=== PATIENT | female | born 1940 | race Caucasian/White ===

== ENCOUNTER → 2018-12-05 14:00 | Outpatient (REF) | payer MEDICARE, SELFPAY ==
[2018-12-06 07:54] LABS: Color, Urine Yellow (Yellow); Glucose, Dipstick Normal (Normal); Ketone-Dipstick Negative (Negative); Leukocyte Esterase-Dipstick 100 /ul (Negative); Nitrite-Dipstick Negative (Negative); Occult Blood-Urine Negative /ul (Negative); Protein-Dipstick Negative (Negative); Specific Gravity, Urine 1.015 (1.002-1.030); Urine Bilirubin Dipstick Negative (Negative); Urine Clarity Sl. Cloudy (Clear); Urine Urobilinogen Normal (Normal)
[2018-12-06 08:11] LABS: Bacteria RARE /hpf (None Seen); Calcium Oxalate Crystals Ur RARE /hpf (<or=2+); Mucous, Urine 1+ /hpf (<or=2+); Red Blood Cells-Urine 0-5 SEEN /hpf (0-5); Squamous Epithelial Cells - UA 0-5 SEEN /hpf (5-10); White Blood Cells 0-5 SEEN /hpf (0-5)
== END ==
LOC: OLS.BROOKB 14:00
PROVIDERS: Visit Provider Family Medicine
DX: N39.0 Urinary tract infection, site not specified (principal)
CPT/HCPCS: 81001; 87077; 87086; 87088; 87186

== ENCOUNTER → 2018-12-11 | Outpatient (REF) | payer MEDICARE, SELFPAY ==
[2018-12-11 08:41] LABS: AST(SGOT) 23 U/L (15-37); Alanine Aminotransfer ALT/SGPT 37 U/L (13-56); Anion Gap 9 (5-15); BUN 14 mg/dL (7-18); BUN/Creat Ratio 14.7 RATIO (10-20); Calcium,Total 7.9 mg/dL (8.5-10.1); Chloride 112 mmol/L (98-107); Cholesterol 106 mg/dL (200); Creatinine, Serum 0.96 mg/dL (0.55-1.02); EST Glomerular Filtration Rate 60 mL/min (>60); Est Glom Filt Rate - Afr Amer 73 mL/min (>60); Glucose 102 mg/dL (74-106); High Density Lipoprotein 43 mg/dL; Potassium 3.9 mmol/L (3.5-5.1); Sodium Level 147 mmol/L (136-145); Thyroid Stim Hormone (TSH) 1.11 uIU/mL (0.358-3.74); Triglycerides 86 mg/dL; Very Low Density Lipoprotein 17 mg/dL (5-40)
== END | disposition home or self-care (01) ==
LOC: OLS.BROOKB 07:10
PROVIDERS: Visit Provider Family Medicine
DX: I10 Essential (primary) hypertension (principal); E78.5 Hyperlipidemia, unspecified
CPT/HCPCS: 36415; 80048; 80061; 84443; 84450; 84460

== ENCOUNTER → 2018-12-22 | Outpatient (REF) | payer MEDICARE, SELFPAY ==
[2018-12-22 08:11] LABS: Bacteria 0 SEEN /hpf (None Seen); Mucous, Urine 0 SEEN /hpf (<or=2+); Red Blood Cells-Urine 0 SEEN /hpf (0-5); White Blood Cells 0 SEEN /hpf (0-5)
[2018-12-22 08:44] LABS: Color, Urine Yellow (Yellow); Glucose, Dipstick Normal (Normal); Ketone-Dipstick Negative (Negative); Leukocyte Esterase-Dipstick Negative /ul (Negative); Nitrite-Dipstick Negative (Negative); Occult Blood-Urine Negative /ul (Negative); Protein-Dipstick Negative (Negative); Urine Bilirubin Dipstick Negative (Negative); Urine Clarity Sl. Cloudy (Clear); Urine Urobilinogen Normal (Normal)
[2018-12-22 08:52] LABS: Squamous Epithelial Cells - UA 0-5 SEEN /hpf (5-10)
== END | disposition home or self-care (01) ==
LOC: OLS.BROOKB 07:45
PROVIDERS: Visit Provider Family Medicine
DX: N39.0 Urinary tract infection, site not specified (principal)
CPT/HCPCS: 81001; 87086; 87088

== ENCOUNTER → 2019-01-08 13:58 | Outpatient (CLI) | payer MEDICARE, BC, SELFPAY ==
--- NOTE | 2019-01-08 14:04 | CT_ITS ---
STUDY: CT BRAIN WITHOUT CONTRAST REASON FOR EXAM: Female, 78 years old. Stroke RADIATION DOSAGE (If Supplied By Facility): CTDIvol = ( 60.81 ) mGy, DLP = ( 1067.08 ) mGycm TECHNIQUE: Transaxial CT imaging of the brain was performed without administration of intravenous contrast material. Individualized dose optimization techniques were used for this CT. COMPARISON: No relevant priors. FINDINGS: Normal soft tissue structures. There is hyperostosis frontalis internus. There is moderate cerebral atrophy with widening of the extra-axial spaces and ventricular dilatation. There are areas of decreased attenuation within the white matter tracts of the supratentorial brain, consistent with microvascular disease changes. Normal basal ganglia and thalami. Normal brainstem. Normal cerebellum. There is no intracranial hemorrhage. There are no findings of an acute ischemic infarction. Normal visualized paranasal sinuses. CT/Brain/Head without Contrast IMPRESSION: Chronic involutional changes of the brain. Electronically Signed: Zia Holder MD at 17:26 EDT Tel , Service support ,
== END ==
PROVIDERS: Family Provider Family Medicine; PCP Family Medicine; Referring Provider Family Medicine; Visit Provider Family Medicine
DX: Z86.73 Personal history of transient ischemic attack (TIA), and cerebral infarction without residual deficits (principal)
CPT/HCPCS: 70450

== ENCOUNTER → 2019-02-12 12:00 | Outpatient (REF) | payer MEDICARE, SELFPAY ==
[2019-02-13 08:27] LABS: Color, Urine Yellow (Yellow); Glucose, Dipstick Normal (Normal); Ketone-Dipstick Negative (Negative); Leukocyte Esterase-Dipstick 500 /ul (Negative); Nitrite-Dipstick Negative (Negative); Occult Blood-Urine Negative /ul (Negative); Protein-Dipstick Negative (Negative); Urine Bilirubin Dipstick Negative (Negative); Urine Clarity Sl. Cloudy (Clear); Urine Urobilinogen Normal (Normal)
== END ==
LOC: OLS.BROOKB 12:00
PROVIDERS: Visit Provider Family Medicine
DX: R41.0 Disorientation, unspecified (principal)
CPT/HCPCS: 81002; 87077; 87086; 87088; 87186

== ENCOUNTER 2019-02-22 15:03 | Emergency (ER) | payer MEDICARE, BC, SELFPAY ==
[2019-02-22 15:06] VITALS: BP 145/89; PULSE 93; RESP 18; TEMP 36.6; O2SAT 95; BMI 29.6
[2019-02-22 15:12] VITALS: RESP 16
--- NOTE | 2019-02-22 15:18 | ED.RN ---
PATIENT ALERT AND ORIENTED TO PERSON, PLACE, TIME. PATIENT CONFUSED ABOUT SITUATION. PATIENT CLIMBED A 9 FOOT WALL AT [facility]. PATIENT STATES SHE WAS TRYING TO ESCAPE. SHE DOESN'T WANT TO BE AT A FACILITY ANYMORE AND WOULD LIKE TO GO HOME.
--- NOTE | 2019-02-22 15:50 | CM.ED ---
SOCIAL WORK PATIENT PRESENTS TO EMERGENCY DEPARTMENT D/T MENTAL HEALTH CONCERNS. PATIENT SCALED A 9 FOOT FENCE. PATIENT FROM [facility]. INFORMED PATIENT HAS BEEN ACCEPTED TO [facility] FOR PSYCH AND REQUIRING MEDICAL CLEARANCE. CALL TO [facility], SPOKE WITH SANAZ. PER SANAZ, HAS BEEN WORKING WITH ADMISSION AT [facility] SINCE THIS MORNING. PATIENT WAS ACCEPTED AND WAS UNABLE TO SET UP TRANSPORT FROM [facility] WITHOUT PATIENT BEING SEEN IN EMERGENCY DEPARTMENT. DISCUSSED CASE WITH DR. PALACIO AND PATIENT'S NURSE, SELENA. PATIENT HAVING MEDICAL WORKUP. COIN MACHINE SERVICE REPAIRER TO CONTINUE TO FOLLOW. BEAR LOCKE, OFFSET PLATEMAKER, EDUCATION FINANCE PROCESSOR.
--- NOTE | 2019-02-22 15:55 | ED.VIS.GEN ---
History of Present Illness Chief Complaint: Mental Health Informant: Patient, Family, - - Facility Onset: - - Unknown Context: - - Unknown Timing: Continuous Quality: Agitated, confused impaired memory Location: [facility] Current Severity: Mild Maximum Severity: Moderate Worsened by: Agitation Relieved by: Nothing Associated Symptoms: Possible urinary Narrative: Patient is 78-year-old woman who had a stroke earlier this year. She was treated at outside facility in [facility]. She then was sent to rehab center. She determined she was unable to care for herself. She was transferred to [place] because her daughter resides here. Patient is not oriented to time or place. Patient becomes agitated when she discusses her situation at nursing facility. She believes she is capable of caring for herself. The only symptom that she will voice is possible urinary tract infection. Prior similar symptoms: Yes - Per daughter she fled prior facility. Recent Illness/Hospitalization: Yes - Past Medical History (1) History of stroke Status: Acute Past Medical History - Allergies and Home Meds Allergies/Adverse Reactions: Allergies fish oil Allergy (Verified 02/22/19 15:11) Swelling shellfish derived Allergy (Verified 02/22/19 15:11) Swelling caffeine Adverse Reaction (Verified 02/22/19 15:11) Nausea/Vom/Diarrhea garlic Adverse Reaction (Verified 02/22/19 15:11) Other SEVERE HEADACHE Primary Care Physician: Anika Bonner MD [Primary Care Provider] - Prior records reviewed: No - Charts not available for review Past Medical History: - Surgical History: noncontributory Lives: [facility] Smoking Status: Former smoker Alcohol: None Drugs: None Review of Systems ROS: Unable to Obtain - Impaired memory. Patient upset and agitated she is unable to go home and care for herself. Genitourinary: Reports: Dysuria Physical Exam Vital Signs/Narrative: Vital Signs Temp Pulse Resp BP Pulse Ox 02/22/19 15:12 16 02/22/19 15:06 98 F 93 18 145/89 H 95 Inital Vital Signs reviewed: Yes General: Well nourished, Well developed, No Acute Distress Head: Normocephalic, Atraumatic Eyes: Perrl, EOMI ENT: Moist mucous membranes, No rhinorrhea Neck: Supple, Nontender Cardiovascular: Regular rate, Regular rhythm, No murmurs Respiratory: No distress, CTA bilaterally, Chest nontender Abdomen: Soft, Nontender, Nondistended, Normal bowel sounds Back: Nontender, Normal Inspection Extremities: Nontender, No edema Skin: Normal color, No rash Neurological: Alert, Oriented x3, Cranial nerves II-XII grossly intact, Normal Strength, Normal Sensation, Normal DTR Psychological: Agitated Diagnostic/Tx/Re-eval Laboratory Results 02/22/19 02/22/19 02/22/19 15:50 15:50 15:50 WBC 9.2 RBC 4.75 Hgb 14.7 Hct 44.3 MCV 93.3 MCH 30.9 MCHC 33.2 RDW Std Deviation 46.0 H RDW Coeff of Jordana 13.3 Plt Count 260 MPV 9.1 Immature Gran % (Auto) 0.300 Neut % (Auto) 64.5 Lymph % (Auto) 22.0 [place] % (Auto) 10.8 H Eos % (Auto) 2.0 Baso % (Auto) 0.4 Absolute Neuts (auto) 5.9 Absolute Lymphs (auto) 2.01 Nucleated RBC % 0 Sodium 141 Potassium 3.9 Chloride 107 Carbon Dioxide 26.0 Anion Gap 8 BUN 33 H Creatinine 1.10 H Estim Creat Clear Calc 35.81 Est GFR (MDRD) Af Amer 62 Est GFR (MDRD) Non-Af 51 L BUN/Creatinine Ratio 30.0 H Glucose 103 Calcium 8.6 Total Bilirubin 0.60 AST 28 ALT 41 Alkaline Phosphatase 112 Total Protein 7.2 Albumin 3.5 Globulin 3.7 Albumin/Globulin Ratio 0.9 Urine Color Urine Clarity Urine pH Ur Specific [place] Urine Protein Urine Glucose (UA) Urine Ketones Urine Occult Blood Urine Nitrite Urine Bilirubin Urine Urobilinogen Ur Leukocyte Esterase Urine RBC Urine WBC Ur Squamous Epith Cells Urine Bacteria Urine Mucus Urine Opiates Screen Urine Methadone Screen Ur Barbiturates Screen Ur Phencyclidine Scrn Ur Amphetamines Screen U Methamphetamin-MDMA U Benzodiazepines Scrn Urine Cocaine Screen U Cannabinoids Screen Ur Drug Screen Comment Ethyl Alcohol < 3.0 02/22/19 02/22/19 16:20 16:20 WBC RBC Hgb Hct MCV MCH MCHC RDW Std Deviation RDW Coeff of Jordana Plt Count MPV Immature Gran % (Auto) Neut % (Auto) Lymph % (Auto) [place] % (Auto) Eos % (Auto) Baso % (Auto) Absolute Neuts (auto) Absolute Lymphs (auto) Nucleated RBC % Sodium Potassium Chloride Carbon Dioxide Anion Gap BUN Creatinine Estim Creat Clear Calc Est GFR (MDRD) Af Amer Est GFR (MDRD) Non-Af BUN/Creatinine Ratio Glucose Calcium Total Bilirubin AST ALT Alkaline Phosphatase Total Protein Albumin Globulin Albumin/Globulin Ratio Urine Color Yellow Urine Clarity Sl. Cloudy Urine pH 5.0 Ur Specific [place] 1.015 Urine Protein Negative Urine Glucose (UA) Normal Urine Ketones Negative Urine Occult Blood Negative Urine Nitrite Negative Urine Bilirubin Negative Urine Urobilinogen Normal Ur Leukocyte Esterase 100 H Urine RBC 0 SEEN Urine WBC 0-5 SEEN Ur Squamous Epith Cells 0 SEEN Urine Bacteria 0 SEEN Urine Mucus 0 SEEN Urine Opiates Screen NEGATIVE Urine Methadone Screen NEGATIVE Ur Barbiturates Screen NEGATIVE Ur Phencyclidine Scrn NEGATIVE Ur Amphetamines Screen NEGATIVE U Methamphetamin-MDMA NEGATIVE U Benzodiazepines Scrn NEGATIVE Urine Cocaine Screen NEGATIVE U Cannabinoids Screen NEGATIVE Ur Drug Screen Comment Ethyl Alcohol - Medical Decision Making We will obtain metabolic, infectious work-up to determine if this is the cause of her change in mental status and specifically urinalysis. CT of the head was performed January 08, 2019 and revealed chronic involutional changes of the brain. Since this was done with in 2 months and there are no focal findings there is no indication to repeat CAT scan. Is no metabolic, infectious etiology causing her symptoms. Patient has no contraindication for admission to psychiatric facility to care for her agitation and depression. Patient is medically stable. She attempted to flee hospital grounds. She was brought back to her room and medicated with 10 of Geodon. ED Disposition - Plan for ED Patient: Disposition: Acute Care Hospital - Other Diagnosis: Depression as late effect of cerebrovascular accident (CVA), Agitation, Organic memory impairment Referrals: Anika Bonner MD [Primary Care Provider] -
[2019-02-22 16:05] LABS: Absolute Lymphocyte Count 2.01 X10^3/uL (0.83-4.51); Absolute Neutrophil Count 5.9 X10^3/uL (2.0-7.7); Basophil# 0.04 X10^3/uL; Basophil% 0.4 % (0-1); Eosinophil# 0.18 X10^3/uL; Hematocrit 44.3 % (37-47); Hemoglobin 14.7 g/dL (12.0-15.0); Lymphocyte # 2.01 X10^3/ul (4.0); Mean Corp Hgb Conc 33.2 g/dL (32-36); Mean Corpuscular Hgb 30.9 pg (27.0-32.0); Mean Corpuscular Volume 93.3 fL (81-99); Mean Platelet Vol. 9.1 fl (6.2-12.0); Monocyte# 0.99 X10^3/uL; Monocyte% 10.8 % (0-10); NRBC Flagged by Analyzer 0 % (0-5); Neutrophil % 64.5 % (47-70); Platelet Count 260 K/mm3 (150-450); RBC Distribution Width CV 13.3 % (11.6-14.6); Red Blood Count 4.75 M/mm3 (4.2-5.4); White Blood Count 9.2 K/mm3 (4.4-11.0)
[2019-02-22 16:24] LABS: ALB/GLOB Ratio 0.9 RATIO (0.9-2.4); AST(SGOT) 28 U/L (15-37); Alanine Aminotransfer ALT/SGPT 41 U/L (13-56); Albumin, Serum 3.5 g/dL (3.2-5.0); Alkaline Phosphatase 112 U/L (45-117); Anion Gap 8 (5-15); BUN 33 mg/dL (7-18); Calcium,Total 8.6 mg/dL (8.5-10.1); Chloride 107 mmol/L (98-107); EST Glomerular Filtration Rate 51 mL/min (>60); Est Glom Filt Rate - Afr Amer 62 mL/min (>60); Estimated Creatinine Clearance 35.81 ml/min; Globulin 3.7 g/dL (2.2-4.2); Glucose 103 mg/dL (74-106); Potassium 3.9 mmol/L (3.5-5.1); Protein, Total 7.2 g/dL (6.4-8.2); Sodium Level 141 mmol/L (136-145)
[2019-02-22 16:33] LABS: Bacteria 0 SEEN /hpf (None Seen); Mucous, Urine 0 SEEN /hpf (<or=2+); Red Blood Cells-Urine 0 SEEN /hpf (0-5); Squamous Epithelial Cells - UA 0 SEEN /hpf (5-10)
[2019-02-22 16:42] LABS: Color, Urine Yellow (Yellow); Glucose, Dipstick Normal (Normal); Ketone-Dipstick Negative (Negative); Leukocyte Esterase-Dipstick 100 /ul (Negative); Nitrite-Dipstick Negative (Negative); Occult Blood-Urine Negative /ul (Negative); Protein-Dipstick Negative (Negative); Specific Gravity, Urine 1.015 (1.002-1.030); Urine Bilirubin Dipstick Negative (Negative); Urine Clarity Sl. Cloudy (Clear); Urine Urobilinogen Normal (Normal)
[2019-02-22 16:48] LABS: Alcohol, Blood (Medical)-Serum < 3.0 mg/dL
[2019-02-22 16:58] LABS: White Blood Cells 0-5 SEEN /hpf (0-5)
[2019-02-22 17:02] LABS: Amphetamine Urine VISTA NEGATIVE (<1000 ng/mL); Barbiturate Urine VISTA NEGATIVE (< 200 ng/mL); Benzodiazepine Urine VISTA NEGATIVE (< 200 ng/mL); Cocaine Urine VISTA NEGATIVE (< 300 ng/mL); Ecstacy Urine VISTA NEGATIVE (< 500 ng/mL); Methadone Urine VISTA NEGATIVE (< 300 ng/mL); PCP Urine VISTA NEGATIVE (< 25 ng/mL); THC Urine VISTA NEGATIVE (< 50 ng/mL); Vista UDS pH Range 5
[2019-02-22 17:11] VITALS: RESP 18
--- NOTE | 2019-02-22 17:37 | CM.ED ---
SOCIAL WORK UPDATED PATIENT IS MEDICALLY CLEARED. CALL TO [facility] TO UPDATED. LABS FAXED FOR REVIEW. INTAKE TO CALL THIS WORKER BACK ONCE LABS REVIEWED. BEAR LOCKE, SHIP'S SURVEYOR, CHILDREN'S ENTERTAINER.
--- NOTE | 2019-02-22 18:20 | CM.ED ---
SOCIAL WORK PATIENT ACCEPTED TO [facility]. ACCEPTING PHYSICIAN DR. SILVA. NURSE TO CALL REPORT TO . [facility] REQUESTING PINK SLIP BE FAXED. BEAR LOCKE, CORRECTIONAL SERGEANT, AGRICULTURAL SCIENTIST.
[2019-02-22] MEDS: Ziprasidone IM 20 MG/ML VIAL 10 MG IM (18:45)
--- NOTE | 2019-02-22 18:57 | CM.ED ---
SOCIAL WORK PER CRIMINAL PROFILER, TRANSPORT TO ARRIVE IN 1 HOUR. COPY OF PINK SLIP FAXED TO [facility]. BEAR LOCKE, AUTO DEALER, OPTICAL TECHNICIAN.
--- NOTE | 2019-02-22 19:00 | ED.RN ---
REPORT CALLED TO [facility]. REPORT GIVEN TO VANDANA MABRY. NURSE AT [facility] INFORMED OF TRANSPORT ARRIVAL TO [facility] AT APPROXIMATELY 1945. [facility] NURSE STAFF GIVEN [facility] ED DIRECT NUMBER.
== END 2019-02-22 19:45 | disposition short-term general hospital (02) ==
PROVIDERS: Emergency Provider Emergency Medicine; Family Provider Family Medicine; PCP Family Medicine
DX: I69.398 Other sequelae of cerebral infarction (principal); F32.9 Major depressive disorder, single episode, unspecified; F06.8 Other specified mental disorders due to known physiological condition; R45.1 Restlessness and agitation; Z87.891 Personal history of nicotine dependence; Z79.82 Long term (current) use of aspirin; Z79.899 Other long term (current) drug therapy
CPT/HCPCS: 80053; 80307; 80320; 81001; 85025; 96372; 99285; G0480; J3486